=== PATIENT | female | born 1975 | race Caucasian/White ===

== ENCOUNTER 2016-08-11 15:10 | Emergency (ER) | payer BC | END 2016-08-11 20:10 | disposition home or self-care (01) | LOC: ER1 15:10 | DX: J06.9 Acute upper respiratory infection, unspecified (principal); Z88.2 Allergy status to sulfonamides | CPT/HCPCS: 87081; 87880; 99283 ==

== ENCOUNTER → 2020-11-29 | Outpatient (CLI) | payer BC ==
[~2020-11-29] MED LIST: FLEXERIL 10 MG10 MG PO; MACROBID 100 M100 MG PO; PYRIDIUM200 MG PO; Voltaren Gel 1 % TOP
== END ==
LOC: RAD 12:27
DX: M25.551 Pain in right hip (principal); M16.11 Unilateral primary osteoarthritis, right hip
CPT/HCPCS: 73502